=== PATIENT | female | born 1940 | race Hispanic/Latino ===

== ENCOUNTER 2017-02-28 07:19 | Emergency (ER) | payer MEDICARE ==
[2017-02-28 07:26] VITALS: BMI 29.5
[2017-02-28] MEDS ORDERED: Lidocaine 1%/Epinephrine 1:100000 30 ml vial IJ ONE (07:26)
[2017-02-28] MEDS ORDERED: TDAP Vaccine 0.5 mL Syr IM ONE (07:43)
[2017-02-28] MEDS ORDERED: Oxycodone/Acetaminophen 5/325 mg Tab PO STA (07:44)
[2017-02-28 07:57] VITALS: RESP 18; TEMP 99.2
--- NOTE | 2017-02-28 08:21 | ED PDOC ---
Arrival/HPI - General Chief Complaint: Trauma Time Seen by Provider: 02/28/17 07:22 Historian: Caregiver - History of Present Illness Narrative History of Present Illness (Text): 02/28/17 08:18 76-year-old female presents the emergency department with scalp laceration after a mechanical fall. Patient presents with cafe cook who is the primary historian. He reports that patient tripped and fell overnight. Denies loss of consciousness, denies nausea vomiting, denies dizziness, denies headache, denies shortness of breath, chest pain, dyspnea on exertion. Time/Duration: 4-6 hours Symptom Onset: Sudden Symptom Course: Unchanged Context: Home Past Medical History - Provider Review Nursing Documentation Reviewed: Yes - Infectious Disease Hx of Infectious Diseases: None - HEENT Hx Deafness: Yes - Psychiatric Hx Substance Use: No Family/Social History - Physician Review Nursing Documentation Reviewed: Yes Family/Social History: No Known Family HX Smoking Status: Never Smoked Hx Alcohol Use: No Hx Substance Use: No Allergies/Home Meds Allergies/Adverse Reactions: Allergies No Known Allergies Allergy (Verified 02/28/17 07:26) Review of Systems - Physician Review All systems were reviewed & negative as marked: Yes Physical Exam - Physical Exam Narrative Physical Exam (Text): - Review of Systems Constitutional: Normal. absent: Fatigue, Weight Change, Fevers Eyes: Normal ENT: denies sore throat, denies tristhmus Respiratory: Normal. absent: SOB, Cough, Sputum Cardiovascular: absent: Chest Pain, Palpitations, Syncope Gastrointestinal: Normal. absent: Abdominal Pain, Diarrhea, Nausea, Vomiting Genitourinary: Normal. absent: Dysuria, Frequency, Hematuria, vaginal bleeding Musculoskeletal: Normal. absent: Arthralgias, Back Pain, Neck Pain Skin: Scalp laceration Neurological: absent: Focal Weakness Endocrine: Normal Hemo/Lymphatic: Normal Psychiatric: No suicidal or homicidal ideations Physical exam Patient appears age appropriate in no distress, cafe cook reports that she is deaf and usually has difficulty communicating Head with 3 large lacerations, no active bleeding. No nasal bone deformity or tenderness, no facial or jaw pain/swelling. No neck midline tenderness, thoracic and lumbar spine with no midline tenderness. Pt moving b/l upper and lower extremities without difficulty, 5/5 strength, with full active and passive ROM. Distal neurovasc fully intact. Abd soft/nt/ng, no hematomas, no peritoneal signs. Neg. pelvic rock. - Systems Exam Head: Present: Atraumatic, Normocephalic Pupils: Present: PERRL Extroacular Muscles: Present: EOMI Conjunctiva: Present: Normal Mouth: Present: Moist Mucous Membranes Neck: Present: Normal Range of Motion. No: MIDLINE TENDERNESS, Paraspinal Tenderness Respiratory/Chest: Present: Clear to Auscultation, Good Air Exchange. No: Respiratory Distress, Accessory Muscle Use, Tachypneic Cardiovascular: Present: Regular Rate and Rhythm, Normal S1, S2, Peripheal Pulses Present. No: Murmurs Abdomen: Present: Normal Bowel Sounds. No: Tenderness, Distention, Peritoneal Signs, Rebound, Guarding Back: Present: Normal Inspection. No: Midline Tenderness, Paraspinal Tenderness Upper Extremity: Present: Normal Inspection. No: Cyanosis, Edema Lower Extremity: Present: Normal Inspection. No: Edema Neurological: Present: GCS=15, Speech Normal, cranial nerves II through XII fully intact with no cerebellar abnormality, neurosensory fully intact. No focal neurological deficits. Skin: Present: Warm, Dry, Normal Color. No: Rashes Lymphatic: Present: OX3, NI, NC Psychiatric: Present: Alert, not agitated, not combative. Cooperative. Vital Signs Reviewed: Yes Vital Signs Temp Pulse Resp BP Pulse Ox 02/28/17 09:33 94 H 18 145/83 97 02/28/17 07:20 99.2 F 91 H 18 157/100 H 96 Temperature: Afebrile Blood Pressure: Hypertensive Pulse: Regular Respiratory Rate: Normal Appearance: Positive for: Well-Appearing Pain Distress: None Mental Status: No: Agitated, Lethargic Medical Decision Making ED Course and Treatment: 02/28/17 08:40 Plan: -- CT cervical spine -- CT head -- Boostrix vaccine, Lidocaine 1%, Percocet -- Reassess and disposition Progress Notes: CT head: Creator : Lexis Pearce MD IMPRESSION: No acute intracranial abnormality. Left parietal scalp hematoma and laceration. Mild age-related global parenchymal volume loss. Chronic right frontal and anterior ethmoid sinusitis. CT cervical spine: Creator : Shabbir Powell MD IMPRESSION: Central disc protrusions at C3-4 and C4-5. 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 No evidence of acute fracture. 02/28/17 09:00 Patient has 3 linear lacerations on her scalp. Through the calvarium. Totaling approximately 25 cm in length Calvarium repaired with subcuticular running sutures Michael also utilized Immediately prior to procedure a "time out" was called to verify the correct patient, procedure and site. Verbal consent Procedure: Wound anesthetized with 10 ml of lidocaine with epinephrine, cleansed thoroughly, NS irrigation and explored: No foreign body or deep structure involvement detected. Entire laceration closed with 20 subcuticular running sutures, 5-0, dissolvable. 20 michael also utilized. Well approximated with no bleeding or neurovasc abnormality Tetanus updated. Proper wound care instructions and follow-up given cafe cook (nephew) Patient's cafe cook states that he feels comfortable taking her home with outpatient follow-up. On reexamination she has no focal neurological deficits and denies having a headache or other complaints. - RAD Interpretation Radiology Orders: 02/28/17 07:43 HEAD W/O CONTRAST [CT] Stat 02/28/17 07:44 CERVICAL SPINE W/O CONTRAST [CT] Stat - Medication Orders Current Medication Orders: Discontinued Medications Lidocaine/Epinephrine (Lidocaine 1%/Epinephrine 1:096941 30 Ml) 30 ml IJ ONCE ONE Stop: 02/28/17 07:27 Last Admin: 02/28/17 08:43 Dose: 30 ml Oxycodone/Acetaminophen (Percocet 5/325 Mg Tab) 1 tab PO STAT STA Stop: 02/28/17 07:45 Last Admin: 02/28/17 08:01 Dose: 1 tab Re-Assess: KARLO Pain Assessment Document 02/28/17 09:01 SS (Rec: 02/28/17 09:34 SS [facility] [id number] Pain Reassessment Is this a pain reassessment? No Sleep Is patient sleeping during reassessment? No Presence of Pain Presence of Pain Yes Pain Scale Used Pain Scale Used Numeric Location Left, Right or Bilateral Left Pain Location Body Carcass Splitter Description Description Constant Intensity of Pain at present 3 Tetanus/Reduced Diphtheria/Acell Pertussis (Boostrix Vaccine Inj) 0.5 ml IM .ONCE ONE Stop: 02/28/17 07:44 Last Admin: 02/28/17 08:55 Dose: 0.5 ml - Scribe Statement The provider has reviewed the documentation as recorded by the Scribe Ramez Barboza All medical record entries made by the Travisibe were at my direction and personally dictated by me. I have reviewed the chart and agree that the record accurately reflects my personal performance of the history, physical exam, medical decision making, and the department course for this patient. I have also personally directed, reviewed, and agree with the discharge instructions and disposition. Disposition/Present on Arrival - Present on Arrival Any Indicators Present on Arrival: No History of DVT/PE: No History of Uncontrolled Diabetes: No Urinary Catheter: No History of Decub. Ulcer: No History Surgical Site Infection Following: None - Disposition Have Diagnosis and Disposition been Completed?: Yes Diagnosis: Scalp laceration Disposition: HOME/ ROUTINE Disposition Time: 09:11 Patient Plan: Discharge Condition: GOOD Discharge Instructions (ExitCare): Staple Care (ED), Care For Your Absorbable Stitches (ED) Additional Instructions: Please follow-up with the primary physician in the next 2 days for wound reevaluation Please follow-up with your primary physician or the emergency department in 7- 10 days for staple removal Return to the ER right away for headaches, dizziness, nausea, lethargy, dizziness Return right away for redness, bleeding, pain, or discharge at the suture site Return for any new or worsening problems or if you are not able to follow-up as instructed. Prescriptions: Cephalexin [Keflex] 500 mg PO TID #21 capsule Referrals: Shabbir Cid MD [Primary Care Provider] - Follow up with primary
--- NOTE | 2017-02-28 08:36 | CT ---
PROCEDURE: CT HEAD WITHOUT CONTRAST. HISTORY: Fall COMPARISON: None available. TECHNIQUE: Axial computed tomography images were obtained through the head/brain without intravenous contrast. Radiation dose: Total exam DLP = 669.05 mGy-cm. This CT exam was performed using one or more of the following dose reduction techniques: Automated exposure control, adjustment of the mA and/or kV according to patient size, and/or use of iterative reconstruction technique. FINDINGS: HEMORRHAGE: No intracranial hemorrhage. BRAIN: Wyman-white matter differentiation is preserved. There is no mass, mass effect or abnormal extra-axial fluid collection. VENTRICLES: There is mild age-related global parenchymal volume loss and proportionate enlargement of the ventricles and cortical sulci. CALVARIUM: There is no calvarial fracture. There is mild hyperostosis frontalis interna. There is mild left high parietal scalp hematoma and foci of air in the deep calvarial soft tissues with soft tissue irregularity consistent with laceration. PARANASAL SINUSES: There is complete opacification of the right frontal sinus and partial opacification of the anterior ethmoid air cells. The remaining included paranasal sinuses are predominantly clear. MASTOID AIR CELLS: Unremarkable as visualized. No inflammatory changes. OTHER FINDINGS: None. IMPRESSION: No acute intracranial abnormality. Left parietal scalp hematoma and laceration. Mild age-related global parenchymal volume loss. Chronic right frontal and anterior ethmoid sinusitis.
--- NOTE | 2017-02-28 09:07 | CT ---
PROCEDURE: CT Cervical Spine without contrast HISTORY: Fall COMPARISON: None available. TECHNIQUE: Axial computed tomography images were obtained of the cervical spine without the use of intravenous contrast. Coronal and sagittal reformatted images were created and reviewed. Radiation dose: Total exam DLP = 461 mGy-cm. This CT exam was performed using one or more of the following dose reduction techniques: Automated exposure control, adjustment of the mA and/or kV according to patient size, and/or use of iterative reconstruction technique. FINDINGS: VERTEBRAE: No fracture. Normal alignment. No destructive bony lesion. DISCS/SPINAL CANAL/NEURAL FORAMINA: No significant central canal or neural foraminal stenosis. There is disc degeneration at C5-6 with disc space narrowing and posterior osteophytes. There is a small to moderate central disc protrusion at C3-4 and C4-5 PARASPINAL SOFT TISSUES: Unremarkable. OTHER FINDINGS: None. IMPRESSION: Central disc protrusions at C3-4 and C4-5. 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 No evidence of acute fracture
[2017-02-28 09:34] VITALS: BP 145/83; PULSE 94; O2SAT 97
== END 2017-02-28 09:52 | disposition home or self-care (01) ==
LOC: ED 07:19
DX: S01.01XA Laceration without foreign body of scalp, initial encounter (principal); W01.0XXA Fall on same level from slipping, tripping and stumbling without subsequent striking against object, initial encounter; Y92.009 Unspecified place in unspecified non-institutional (private) residence as the place of occurrence of the external cause; Z23 Encounter for immunization